=== PATIENT | male | born 1965 | race African-American/Black ===

== ENCOUNTER 2024-08-30 07:07 | Emergency (ER) | payer OTHER ==
[~2024-08-30] VITALS: Ht 165.1 cm; Wt 82.0 kg
[2024-08-30 07:16] VITALS: O2SAT 98
[2024-08-30 08:23] VITALS: TEMP 38.9
[2024-08-30] MEDS: LACTATED RINGERS 1,000 ML IV STA (08:34)
[2024-08-30] MEDS: IBUPROFEN 600MG TABLET PO ONE (08:34)
[2024-08-30 09:38] LABS: PROTHROMBIN TIME 11.3 sec (9.6-11.0)
[2024-08-30 09:41] LABS: CHLORIDE 109 mEq/L (98-107); POTASSIUM 3.8 mEq/L (3.5-5.1); SODIUM 139 mEq/L (136-145)
[2024-08-30 09:42] LABS: CARBON DIOXIDE 22 mEq/L (21-32); HEMATOCRIT. 39.2 % (42.0-52.0); HEMOGLOBIN. 13.3 g/dL (14.0-18.0); MEAN CORPUSCULAR HEMOGLOBIN 29.7 pg (28.0-32.0); MEAN CORPUSCULAR HGB CONC 33.9 g/dL (31.0-37.0); MEAN CORPUSCULAR VOLUME 87.7 fL (80.0-94.0); MEAN PLATELET VOLUME 9.8 fl (7.4-10.4); PLATELET 188 x1000/uL (130-400); RED BLOOD CELL COUNT 4.48 mill/uL (4.7-6.1); RED CELL DISTRIBUTION WIDTH 13.2 % (11.6-14.6); WHITE BLOOD COUNT 9.4 x1000/uL (4.5-11.0)
[2024-08-30 09:43] LABS: CALCIUM 9.1 mg/dL (8.7-10.4)
[2024-08-30 09:47] LABS: CREATININE 1.2 mg/dL (0.6-1.3); GLUCOSE 128 mg/dL (70-105)
[2024-08-30 09:48] LABS: TROPONIN I HIGH SENSITIVITY 9 ng/L (3.0-53); UREA NITROGEN BLOOD 19 mg/dL (9-23)
[2024-08-30 09:54] LABS: CLARITY URINE CLEAR (CLEAR); COLOR URINE YELLOW (YELLOW); GLUCOSE URINE 2+ (NEGATIVE); KETONES URINE NEGATIVE (NEGATIVE); LEUKOCYTE ESTERASE URINE NEGATIVE (NEGATIVE); NITRITE URINE NEGATIVE (NEGATIVE); OCCULT BLOOD URINE TRACE (NEGATIVE); PH URINE 5.5 (4.5-8.0); PROTEIN URINE 2+ (NEGATIVE); SPECIFIC GRAVITY URINE 1.028 (1.005-1.030)
[2024-08-30 10:01] LABS: DIFFERENTIAL COMMENT 1
[2024-08-30 10:05] LABS: BACTERIA URINE 1+; RBC URINE NONE SEEN /hpf (0-2); SQUAMOUS EPITHELIAL CELL URINE NONE SEEN /lpf (RARE/1+); WBC URINE 0-2 /hpf (0-2); YEAST URINE NONE SEEN
[2024-08-30 11:16] VITALS: BP 118/84; PULSE 99; RESP 17; O2SAT 96
[2024-08-30] MEDS: ACETAMINOPHEN 325MG TABLET PO ONE (12:46)
[2024-08-30 18:04] LABS: PLATELET ESTIMATE NORMAL
== END 2024-08-30 12:51 | disposition home or self-care (01) ==
LOC: ER 07:25
DX: B34.9 Viral infection, unspecified (principal); I10 Essential (primary) hypertension
CPT/HCPCS: 99291; 96360; 96361; 80048; 81003; 83605; 85025; 85610; 87040; 84484; 36415; 71045; 93005; J7120